=== PATIENT | female | born 1955 | race Caucasian/White ===

== ENCOUNTER 2022-06-15 13:01 | Emergency (ER) | payer BC ==
[2022-06-15 14:34] LABS: #Eosinphils 0.1 10x3/uL (0.0-0.5); #Monocytes 0.8 10x3/uL (0.0-1.1); #Neutrophils 7.3 10x3/uL (1.5-8.4); %Basophils 0.4 % (0.0-2.0); %Eosinophils 0.7 % (0.0-6.0); %Lymphocytes 17.1 % (18.0-47.0); %Monocytes 8.1 % (0.0-10.0); %Neutrophils 73.3 % (40.0-75.0); Hemoglobin 8.5 g/dL (12.0-15.5); Mean Corpuscular Hemoglobin 26.6 pg (27.0-33.0); Mean Corpuscular Volume 88.4 fl (81.6-98.3); Mean Platelet Volume 11.1 fl (7.4-10.4); Platelet Count 376 10x3/uL (150-450)
[2022-06-15 14:38] LABS: PTT 24.3 sec (22.0-33.0); Prothrombin Time 10.3 sec (9.5-12.1)
[2022-06-15 15:28] LABS: ALT (SGPT) 58 U/L (8-55); AST (SGOT) 92 U/L (5-34); Alkaline Phosphatase 71 U/L (40-110); Anion Gap 16 mmol/L (10-20); BUN (Urea Nitrogen) 13 mg/dL (9.8-20.1); Bilirubin, Total 0.3 mg/dL (0.2-1.2); Calc. Creatinine Clearance 0 mL/min (70-130); Calcium 9.1 mg/dL (7.8-10.44); Carbon Dioxide 20 mmol/L (23-31); Chloride 105 mmol/L (98-107); Estimated GFR 48; Globulin 2.8 g/dL (2.4-3.5); Glucose 92 mg/dL (80-115); Potassium 4.4 mmol/L (3.5-5.1); Protein, Total 6.8 g/dL (5.8-8.1); Sodium 137 mmol/L (136-145)
[2022-06-15 15:31] LABS: Troponin I Less than 0.010 ng/mL (< 0.028)
[2022-06-15 16:57] LABS: Bilirubin Neg (Negative); Blood, Urine Negative (Negative); Clarity Clear (Clear); Glucose, Urine (Dipstick) Normal (Negative); Ketone, Urine Negative (Negative); Leukocyte 500 (Negative); Nitrite Negative (Negative); Protein, Urine (Dipstick) Negative (Neg-Trace); Urobilinogen Normal mg/dL (Less than 2)
[2022-06-15 17:08] LABS: Bacteria/HPF 1+ HPF (None Seen); RBC/HPF 0-3 HPF (0-3); WBC/HPF 21-50 HPF (0-3)
[2022-06-15] MEDS ORDERED: cefTRIAXone (ROCEPHIN) 1 GM VIAL ONE (17:28)
== END 2022-06-15 18:12 | disposition home or self-care (01) ==
LOC: CSHERS 13:01
DX: N39.0 Urinary tract infection, site not specified (principal); D64.9 Anemia, unspecified; R42 Dizziness and giddiness; E11.9 Type 2 diabetes mellitus without complications; I10 Essential (primary) hypertension; E66.9 Obesity, unspecified; F17.210 Nicotine dependence, cigarettes, uncomplicated
CPT/HCPCS: 36415; 80053; 81003; 81015; 82274; 84484; 85025; 85610; 85730; 93005; 96365; J0696

== ENCOUNTER 2023-01-10 09:14 | Outpatient (CLI) | payer MEDICARE | END 2023-01-10 09:15 | disposition home or self-care (01) | LOC: CSHULT 09:14 | PROVIDERS: ATTEND Physician Assistant Medical | DX: R79.89 Other specified abnormal findings of blood chemistry (principal); K76.0 Fatty (change of) liver, not elsewhere classified | CPT/HCPCS: 76705 ==

== ENCOUNTER 2023-07-07 09:31 | Outpatient (CLI) | payer MEDICARE | END 2023-07-07 09:32 | disposition home or self-care (01) | LOC: CSHMRI 09:31 | PROVIDERS: ATTEND Orthopaedic Surgery | DX: M54.50 Low back pain, unspecified (principal); M54.16 Radiculopathy, lumbar region; M48.061 Spinal stenosis, lumbar region without neurogenic claudication; M48.07 Spinal stenosis, lumbosacral region | CPT/HCPCS: 72148 ==

== ENCOUNTER 2023-11-17 11:55 | Outpatient (CLI) | payer MEDICARE ==
[2023-11-17 12:40] LABS: #Basophils 0.02 10x3/uL (0.0-0.2); #Eosinphils 0.11 10x3/uL (0.0-0.5); #Monocytes 0.65 10x3/uL (0.0-1.1); #Neutrophils 4.71 10x3/uL (1.5-8.4); %Basophils 0.3 % (0.0-2.0); %Eosinophils 1.5 % (0.0-6.0); %Lymphocytes 26.3 % (18.0-47.0); %Monocytes 8.7 % (0.0-10.0); %Neutrophils 62.8 % (40.0-75.0); Hematocrit 34.8 % (34.9-44.5); Hemoglobin 11.6 g/dL (12.0-15.5); Mean Corpuscular HGB CONC 33.3 g/dL (32.0-36.0); Mean Corpuscular Volume 99.1 fL (81.6-98.3); Platelet Count 292 10x3/uL (150-450); RBC Distribution Width 14.4 % (11.5-14.5); Red Blood Cell (RBC) Count 3.51 10x6/uL (3.90-5.03); White Blood Cell (WBC) Count 7.5 10x3/uL (3.5-10.5)
[2023-11-17 13:09] LABS: ALT (SGPT) 16 U/L (8-55); AST (SGOT) 23 U/L (5-34); Albumin 3.7 g/dL (3.4-4.8); Alkaline Phosphatase 87 U/L (40-110); Anion Gap 15 mmol/L (10-20); BUN (Urea Nitrogen) 11 mg/dL (9.8-20.1); Bilirubin, Total 0.2 mg/dL (0.2-1.2); Calc. Creatinine Clearance 0 mL/min (70-130); Calcium 9.4 mg/dL (7.8-10.44); Carbon Dioxide 22 mmol/L (23-31); Chloride 107 mmol/L (98-107); Estimated GFR 49; Globulin 2.9 g/dL (2.4-3.5); Glucose 177 mg/dL (80-115); Potassium 3.9 mmol/L (3.5-5.1); Protein, Total 6.6 g/dL (5.8-8.1); Sodium 140 mmol/L (136-145)
== END 2023-11-17 11:56 | disposition home or self-care (01) ==
LOC: CSHLAB 11:55
PROVIDERS: ATTEND Surgery
DX: Z01.818 Encounter for other preprocedural examination (principal); K60.30 Anal fistula, unspecified
CPT/HCPCS: 80053; 85025; 93005; 93010

== ENCOUNTER 2023-11-20 05:46 | Day surgery (SDC) | payer MEDICARE ==
[2023-11-20] MEDS ORDERED: Lidocaine 2% 6 ML (Jelly) SYR ONE (06:56)
[2023-11-20] MEDS ORDERED: Bupivacaine HCl 0.5%/Epinephrine 1:200,000/PF 30 ml Vial ONE (06:56)
[2023-11-20] MEDS ORDERED: Triple Antibiotic Oint 1 GM Packet ONE ×2 (06:56→08:16)
[2023-11-20] MEDS ORDERED: PROPOFOL 20 ML ONE ×2 (07:14→08:21)
[2023-11-20] MEDS ORDERED: Fentanyl 250 MCG/5 ML VIAL ONE (07:17)
[2023-11-20] MEDS ORDERED: Midazolam HCl 2 mg/2 ml Vial ONE (07:17)
[2023-11-20] MEDS ORDERED: ceFOXitin 1 GM VIAL ONE (07:18)
[2023-11-20] MEDS ORDERED: Glycopyrrolate 0.2 MG/ML 5 ML SYRINGE ONE (07:23)
[2023-11-20] MEDS ORDERED: Ondansetron PF 4 MG/2 ML Vial ONE (07:23)
[2023-11-20] MEDS ORDERED: PHENYLEPHRINE-NS 100 MCG/ML 10 ML SYRINGE ONE (07:23)
[2023-11-20] MEDS ORDERED: Metoclopramide HCl 10 MG (2 mL) VIAL ONE (07:23)
[2023-11-20] MEDS ORDERED: Dexamethasone 20 MG/5 ML VIAL ONE (07:23)
[2023-11-20 07:34] VITALS: BMI 34.1
[2023-11-20] MEDS ORDERED: Methylene Blue 50 MG/10 ML AMPUL ONE (07:52)
[2023-11-20] MEDS ORDERED: Calcium Chloride 1 GM/10 ML Abboject SYRINGE ONE (08:16)
[2023-11-20] MEDS ORDERED: Lidocaine 1% PF 5 ML VIAL ONE (08:17)
[2023-11-20] MEDS ORDERED: SUGAMMADEX SODIUM 200 MG/2 ML VIAL ONE (08:22)
[2023-11-20] MEDS ORDERED: oxyCODONE 5 MG TAB ONE (09:23)
== END 2023-11-20 09:50 | disposition home or self-care (01) ==
LOC: CSHSDC 05:46
PROVIDERS: ATTEND Surgery
PROC: 0DBQXZZ Excision of Anus, External Approach (ICD-10-PCS; principal; 2023-11-20)
DX: K60.322 Anal fistula, complex, persistent (principal); F17.290 Nicotine dependence, other tobacco product, uncomplicated; K52.9 Noninfective gastroenteritis and colitis, unspecified; E11.9 Type 2 diabetes mellitus without complications; F32.A Depression, unspecified; I11.9 Hypertensive heart disease without heart failure; I48.91 Unspecified atrial fibrillation; J44.9 Chronic obstructive pulmonary disease, unspecified; E78.5 Hyperlipidemia, unspecified; Z88.8 Allergy status to other drugs, medicaments and biological substances; Z88.2 Allergy status to sulfonamides; Z79.82 Long term (current) use of aspirin; Z79.899 Other long term (current) drug therapy; Z90.49 Acquired absence of other specified parts of digestive tract; Z90.710 Acquired absence of both cervix and uterus; Z98.890 Other specified postprocedural states
CPT/HCPCS: 46270; J0694; J1100; J2250; J2405; J2704; J2765; J3010